=== PATIENT | female | born 1965 | race Caucasian/White ===

== ENCOUNTER 2023-07-22 14:30 | Outpatient (RCR) | payer MEDICARE, SELFPAY | END 2023-08-24 15:07 | disposition home or self-care (01) | PROVIDERS: Visit Provider Internal Medicine | DX: R26.89 Other abnormalities of gait and mobility (principal); G35 Multiple sclerosis; Z51.89 Encounter for other specified aftercare | CPT/HCPCS: 97110; 97162; 97530 ==

== ENCOUNTER 2024-09-23 15:41 | Outpatient (CLI) | payer MEDICARE, SELFPAY | END 2024-09-23 15:42 | disposition home or self-care (01) | LOC: NFLDUCREF 15:44 | PROVIDERS: PCP Surgery; Visit Provider Nurse Practitioner Family | DX: R05.9 Cough, unspecified (principal); R53.1 Weakness; R50.9 Fever, unspecified | CPT/HCPCS: 87086; 87186 ==